=== PATIENT | female | born 1975 | race Caucasian/White ===

== ENCOUNTER → 2016-08-15 | Outpatient (REF) | payer BC, OTHER | LOC: M LAB REF 14:25 | PROVIDERS: ATTEND Family Medicine | DX: D22.39 Melanocytic nevi of other parts of face (principal) ==

== ENCOUNTER → 2017-02-19 | Outpatient (CLI) | payer OTHER ==
[2017-02-19 17:55] LABS: LUTEINIZING HORMONE 4.4 mIU/mL
[2017-02-19 17:56] LABS: ESTRADIOL 47.4 PG/ML; FOLLICLE STIMULATING HORMONE 9.3 mIU/mL
[2017-02-19 18:03] LABS: FREE T4 1.07 NG/DL (0.76-1.46)
== END ==
LOC: M SMT 13:25
PROVIDERS: ATTEND Physician Assistant Medical
DX: N95.1 Menopausal and female climacteric states (principal)

== ENCOUNTER → 2017-12-22 | Outpatient (CLI) | payer OTHER ==
[2017-12-22 17:36] LABS: BASO # 0.1 10^3/uL (0.0-0.2); BASO % 0.6 % (0.0-1.0); EOS # 0.2 10^3/uL (0.0-0.50); EOS % 2.1 % (0.0-3.0); HEMATOCRIT 40.8 % (36.0-47.0); HEMOGLOBIN 13.7 g/dl (12.0-15.5); IMMATURE GRANULOCYTE % 0.3 % (0-3.0); LYMPH # 2.4 10^3/uL (1.5-4.5); LYMPH % 22.6 % (24.0-44.0); MEAN CORPUSCULAR HGB CONC 33.6 g/dl (32.0-36.5); MEAN CORPUSCULAR VOLUME 92.3 fl (80.0-96.0); MONO # 0.5 10^3/uL (0.0-0.8); MONO % 4.4 % (0.0-5.0); NEUTROPHILS # 7.5 10^3/uL (1.8-7.7); PLATELET COUNT, AUTOMATED 225 10^3/uL (150-450); RED BLOOD COUNT 4.42 10^6/uL (4.00-5.40); RED CELL DISTRIBUTION WIDTH 12.3 % (11.5-14.5); WHITE BLOOD COUNT 10.7 10^3/uL (4.0-10.0)
[2017-12-22 18:05] LABS: VITAMIN B12 LEVEL 378 PG/ML
[2017-12-22 18:06] LABS: FOLATE 8.9 NG/ML
[2017-12-22 18:15] LABS: ALBUMIN 3.9 GM/DL (3.2-5.2); ALBUMIN/GLOBULIN RATIO 1.26 (1.00-1.93); ALKALINE PHOSPHATASE 54 U/L (45-117); ALT/SGPT 19 U/L (12-78); ANION GAP 7 MEQ/L (8-16); AST/SGOT 11 U/L (7-37); BILIRUBIN,TOTAL 0.6 MG/DL (0.2-1.0); BLOOD UREA NITROGEN 10 MG/DL (7-18); CALCIUM LEVEL 9.1 MG/DL (8.5-10.1); CARBON DIOXIDE LEVEL 28 MEQ/L (21-32); CHLORIDE LEVEL 108 MEQ/L (98-107); CREATININE FOR GFR 0.91 MG/DL (0.55-1.30); FERRITIN 35 NG/ML (8-252); GLOMERULAR FILTRATION RATE > 60.0 (>58); GLUCOSE, FASTING 105 MG/DL (70-100); SODIUM LEVEL 143 MEQ/L (136-145)
== END ==
LOC: M SMT 14:37
DX: R20.2 Paresthesia of skin (principal); Z84.81 Family history of carrier of genetic disease
CPT/HCPCS: 82746

== ENCOUNTER → 2017-12-22 | Outpatient (CLI) | payer OTHER | LOC: M SMT 14:40 | DX: N95.1 Menopausal and female climacteric states (principal) ==

== ENCOUNTER → 2020-04-03 | Outpatient (CLI) | payer OTHER ==
--- NOTE | 2020-04-03 09:08 | REP ---
INDICATION: RT HIP PAIN injury August 2019 in November 2019, pain COMPARISON: None. TECHNIQUE: Coronal T1, STIR through the pelvis, axial, coronal, sagittal T2 fat sat left hip. FINDINGS: The visualized osseous structures demonstrate normal bone marrow signal. There is no bone marrow edema or occult fracture. There is no evidence of avascular necrosis. There is oblique linear high signal on axial T2 weighted images in the region of the anterior labrum which could represent an anterior labral tear.. There is no paralabral cyst. Surrounding soft tissue structures demonstrate no abnormal signal. There is no joint effusion. The visualized intrapelvic structures are unremarkable. IMPRESSION: An anterior labral tear is suspected. This could be confirmed with an MR arthrogram. <Electronically signed by Nile Berger > 04/03/20 [id number]
== END ==
LOC: M RAD 07:25
PROVIDERS: ATTEND Orthopaedic Surgery
DX: M25.551 Pain in right hip (principal)

== ENCOUNTER → 2020-04-11 | Outpatient (CLI) | payer OTHER ==
--- NOTE | 2020-04-11 14:49 | REPVR ---
PROCEDURE INFORMATION: Exam: MR Lumbar Spine Without Contrast. Exam date and time: 04/11/2020 2:37 PM Age: 44 years old Clinical indication: Low back pain; Additional info: Radiculopathy TECHNIQUE: Imaging protocol: Multiplanar magnetic resonance images of the lumbar spine without intravenous contrast. COMPARISON: No relevant prior studies available. FINDINGS: Vertebrae: There is no fracture or listhesis. Normal vertebral body alignment and heights are preserved. Aside from a hemangioma at L3, marrow signal is within normal limits. Spinal cord: Normal signal. No cord compression. L1-L2: No significant disc disease. No significant spinal canal stenosis. No neural foraminal stenosis. L2-L3: There is shallow disc bulging asymmetric to the left. There is mild facet hypertrophy. There is mild left neural foraminal narrowing. L3-L4: There is shallow disc bulging. There is mild facet hypertrophy. There is moderate right and [id number] left neural foraminal narrowing. L4-L5: There is diffuse disc bulging with a prominent left paracentral/subarticular component and annular tear. This narrows the left lateral recess. There is mild facet hypertrophy. There is mild bilateral neural foraminal narrowing. L5-S1: There is diffuse disc bulging with superimposed central protrusion. This indents the ventral thecal sac and narrows the lateral recesses, left greater than right. There is mild canal stenosis. There is mild facet hypertrophy. There is mild bilateral neural foraminal narrowing. Soft tissues: Unremarkable. IMPRESSION: Degenerative disc disease and spondylosis as described. Electronically signed by: Bettina Molina On 04/11/2020 14:49:15 PM
== END ==
LOC: M RAD 13:56
PROVIDERS: ATTEND Orthopaedic Surgery
DX: M54.16 Radiculopathy, lumbar region (principal); M51.26 Other intervertebral disc displacement, lumbar region; M51.27 Other intervertebral disc displacement, lumbosacral region; M51.36 Other intervertebral disc degeneration, lumbar region; M51.37 Other intervertebral disc degeneration, lumbosacral region

== ENCOUNTER → 2020-05-30 | Outpatient (CLI) | payer OTHER ==
--- NOTE | 2020-05-30 20:03 | REP ---
INDICATION: PAIN OF HAND RT ABN XRAY ? INFLAMMATION. COMPARISON: Radiographs 07/23/2010. TECHNIQUE: Multiple sequences obtained in the axial, coronal and sagittal planes. FINDINGS: I see no evidence of bone marrow edema or occult fracture. No bone lesion is seen. Triangular fibrocartilage complex appears intact. The scapholunate and lunatotriquetral ligaments appear intact. The flexor and extensor tendons are intact with no evidence of tenosynovitis. Visualized collateral ligaments appear intact. No ganglion cyst is seen. In the carpal tunnel region there is some anterior bowing of the flexor retinaculum. There is mild increased signal in the median nerve. This may indicate some degree of carpal tunnel syndrome.. There is mild scattered joint fluid in the intercarpal joints and at the anterior radiocarpal joint. IMPRESSION: Findings discussed above suggesting possible carpal tunnel syndrome. Otherwise unremarkable MRI of the right hand. <Electronically signed by Nile Berger > 05/30/[id number]
== END ==
LOC: M RAD 17:06
PROVIDERS: ATTEND Internal Medicine
DX: M79.643 Pain in unspecified hand (principal)

== ENCOUNTER → 2020-12-10 | Outpatient (REF) | payer OTHER | LOC: M SFHCRHEU 11:04 | PROVIDERS: ATTEND Internal Medicine | DX: E55.9 Vitamin D deficiency, unspecified (principal) ==

== ENCOUNTER → 2022-07-23 | Outpatient (CLI) | payer BC ==
[2022-07-23 12:53] LABS: BASO # 0.1 10^3/uL (0.0-0.2); BASO % 0.9 % (0.0-1.0); EOS # 0.3 10^3/uL (0.0-0.5); EOS % 3.3 % (0.0-3.0); HEMATOCRIT 44.1 % (36.0-47.0); HEMOGLOBIN 14.7 g/dl (12.0-15.5); LYMPH # 2.9 10^3/uL (1.5-5.0); LYMPH % 31.2 % (24.0-44.0); MEAN CORPUSCULAR HEMOGLOBIN 31.2 pg (27.0-33.0); MEAN CORPUSCULAR HGB CONC 33.3 g/dl (32.0-36.5); MEAN CORPUSCULAR VOLUME 93.6 fl (80.0-96.0); MONO # 0.5 10^3/uL (0.0-0.8); MONO % 5.6 % (2.0-8.0); NEUTROPHILS # 5.5 10^3/uL (1.5-8.5); NEUTROPHILS % 58.7 % (36.0-66.0); PLATELET COUNT, AUTOMATED 242 10^3/uL (150-450); RED BLOOD COUNT 4.71 10^6/uL (4.00-5.40); WHITE BLOOD COUNT 9.4 10^3/uL (4.0-10.0)
[2022-07-23 13:31] LABS: ERYTHROCYTE SEDIMENTATION RATE 8 mm/hr (0-20)
[2022-07-23 14:06] LABS: ALKALINE PHOSPHATASE 52 U/L (46-116); ALT/SGPT 18 U/L (7.0-40); AST/SGOT 12 U/L (<34); BILIRUBIN,TOTAL 0.7 MG/DL (0.3-1.2); BLOOD UREA NITROGEN 10 MG/DL (9-23); C REACTIVE PROTEIN QUANTITATIV < 0.40 MG/DL (<1.0); CALCIUM LEVEL 9.3 MG/DL (8.5-10.1); CARBON DIOXIDE LEVEL 25 MMOL/L (20-31); CHLORIDE LEVEL 107 MMOL/L (98-107); CREATININE FOR GFR 0.75 MG/DL (0.55-1.30); GLOMERULAR FILTRATION RATE > 60.0 (>58); GLUCOSE, FASTING 92 MG/DL (60-100); SODIUM LEVEL 139 MMOL/L (136-145); TOTAL PROTEIN 6.8 G/DL (5.7-8.2)
[2022-07-23 14:07] LABS: RHEUMATOID FACTOR QUANT < 3.5 IU/ML (<14)
[2022-07-23 14:08] LABS: FREE T4 1.05 NG/DL (0.89-1.76)
[2022-07-23 14:09] LABS: THYROID STIMULATING HORMONE 2.416 uIU/ML (0.55-4.78)
[2022-07-24 13:09] LABS: UNITSIGA FOR GLIADIN IGA 3 units (0-19); UNITSIGG FOR GLIADIN IGG 5 units (0-19)
== END ==
LOC: M LAB 11:35
PROVIDERS: ATTEND Physician Assistant
DX: K58.0 Irritable bowel syndrome with diarrhea (principal)

== ENCOUNTER → 2022-07-30 | Outpatient (REF) | payer BC | LOC: M LAB REF 09:42 | PROVIDERS: ATTEND Physician Assistant | DX: K58.0 Irritable bowel syndrome with diarrhea (principal) ==

== ENCOUNTER → 2022-09-03 | Outpatient (CLI) | payer BC | LOC: M RAD 08:21 | PROVIDERS: ATTEND Physician Assistant | DX: K58.0 Irritable bowel syndrome with diarrhea (principal) ==

== ENCOUNTER → 2023-11-04 | Outpatient (CLI) | payer OTHER, BC ==
[~2023-11-04] MED LIST: PROHANCE 279.3MG/ML 15ML VIAL ONE
== END ==
LOC: M PLAIMG 08:25
PROVIDERS: ATTEND Physician Assistant
DX: Z15.01 Genetic susceptibility to malignant neoplasm of breast (principal)
CPT/HCPCS: A9576; C8908

== ENCOUNTER → 2023-11-18 | Outpatient (CLI) | payer OTHER | LOC: M WHC 13:02 | PROVIDERS: ATTEND Physician Assistant | DX: R92.2 Inconclusive mammogram (principal); N60.11 Diffuse cystic mastopathy of right breast ==

== ENCOUNTER → 2024-04-27 | Outpatient (CLI) | payer OTHER | LOC: M SLEEP HO 11:34 | PROVIDERS: ATTEND Physician Assistant | DX: G47.10 Hypersomnia, unspecified (principal) ==

== ENCOUNTER → 2024-06-17 | Outpatient (CLI) | payer OTHER | LOC: M WHC 13:13 | PROVIDERS: ATTEND Physician Assistant | DX: Z12.31 Encounter for screening mammogram for malignant neoplasm of breast (principal); R92.333 Mammographic heterogeneous density, bilateral breasts ==

== ENCOUNTER 2024-09-27 07:35 | Day surgery (SDC) | payer OTHER ==
[~2024-09-27] VITALS: Ht 162.6 cm; Wt 81.2 kg
[2024-09-27] MEDS: ceFAZolin SOD 2 GM IV ONCE IV ONE (07:31)
[~2024-09-27 07:35] MED LIST changes: +BUPR-766 PO; +ERGO500029 PO; +MELA5TAB47 PO; +MULTCHW14 PO; +ONDA-83 PO; -PROHANCE 279.3MG/ML 15ML VIAL ONE; +ROPI2TAB24 PO; +TIRZ2.5P3 SC; +TOPI-256 PO; +UBRO50TA PO; +VARE0.5T PO
[2024-09-27] MEDS ORDERED: LR 1,000 ML IV SCH ×2 (08:05→10:30)
[2024-09-27] MEDS: SCOPOLAMINE 1MG TRANSDERMAL PATCH TOP ONE (08:45)
[2024-09-27] MEDS ORDERED: fentaNYL 100 MCG/2 ML INJECTION As Ordered ONE (08:55)
[2024-09-27] MEDS ORDERED: LIDOCAINE 2% 100MG/5ML SDV (FOR ANES.) As Ordered ONE (08:56)
[2024-09-27] MEDS ORDERED: ONDANSETRON 4MG 2ML VIAL As Ordered ONE (08:56)
[2024-09-27] MEDS ORDERED: ACETAMINOPHEN 1000MG/100ML IV BAG As Ordered ONE (08:56)
[2024-09-27] MEDS ORDERED: MIDAZOLAM INJ 2MG/2ML VIAL As Ordered ONE (08:56)
[2024-09-27] MEDS ORDERED: propofoL 200 MG/20 ML VIAL As Ordered ONE (08:56)
[2024-09-27] MEDS ORDERED: dexmedeTOMIDine (4MCG/ML)200MCG/50ML BTL (PRECEDEX) As Ordered ONE (09:00)
[2024-09-27] MEDS ORDERED: KETOROLAC 30 MG/ML 1ML VIAL As Ordered ONE (09:39)
[2024-09-27] MEDS: LIDOCAINE W/EPINEPHRINE 1% 20ML VIAL As Ordered ONE (09:53)
[2024-09-27] MEDS: MORPHINE 10 MG/ML 1ML VIAL As Ordered ONE (10:21)
[2024-09-27] MEDS ORDERED: oxyCODONE 5MG TAB PO PRN (10:30)
[2024-09-27] MEDS ORDERED: HYDROMORPHONE HCL 0.5 MG/ 0.5 ML SYRINGE IV PRN (10:30)
[2024-09-27] MEDS ORDERED: fentaNYL 100 MCG/2 ML INJECTION IV PRN (10:30)
[2024-09-27] MEDS ORDERED: ONDANSETRON 4MG 2ML VIAL IV PRN (10:30)
[2024-09-27] MEDS ORDERED: ECOT81TA5 PO (10:54)
[2024-09-27] MEDS ORDERED: HYDR-3713 PO (11:07)
[2024-09-27] MEDS ORDERED: SUZE50TA PO (11:07)
[2024-09-27 11:40] VITALS: BP 98/58; TEMP 98.4; O2SAT 98
== END 2024-09-27 11:45 | disposition home or self-care (01) ==
LOC: M SDC 07:35
PROVIDERS: ATTEND Neuromusculoskeletal Medicine, Sports Medicine
DX: M67.462 Ganglion, left knee (principal); M65.862 Other synovitis and tenosynovitis, left lower leg; M17.12 Unilateral primary osteoarthritis, left knee; Z88.8 Allergy status to other drugs, medicaments and biological substances; Z79.899 Other long term (current) drug therapy; F17.200 Nicotine dependence, unspecified, uncomplicated
CPT/HCPCS: 29875; J0131; J0665; J0690; J1100; J1885; J2250; J2405; J3010

== ENCOUNTER → 2025-03-09 | Outpatient (CLI) | payer BC ==
[~2025-03-09] MED LIST changes: +ECOT81TA5 PO; +HYDR-3713 PO; +PROHANCE 279.3MG/ML 15ML VIAL As Ordered ONE; +SUZE50TA PO
== END ==
LOC: M RAD 15:54
PROVIDERS: ATTEND Physician Assistant
DX: Z15.01 Genetic susceptibility to malignant neoplasm of breast (principal); N60.09 Solitary cyst of unspecified breast; R92.323 Mammographic fibroglandular density, bilateral breasts
CPT/HCPCS: A9576; C8908